=== PATIENT | male | born 1990 | race Caucasian/White ===

== ENCOUNTER 2021-02-04 07:18 | Emergency (ER) | payer MEDICAID, OTHER ==
[~2021-02-04] VITALS: Ht 182.9 cm; Wt 79.4 kg
[2021-02-04 07:27] VITALS: BP 125/75
[2021-02-04] MEDS ORDERED: ZOLO50TA PO (07:31)
[2021-02-04] MEDS ORDERED: TRAZ1TAB10 PO (07:31)
[2021-02-04] MEDS ORDERED: VALA1TAB5 PO (07:46)
[2021-02-04] MEDS ORDERED: PRED20TA PO (07:46)
[2021-02-04] MEDS ORDERED: BACIOIN23 OP (07:47)
[2021-02-05 16:10] LABS: Lyme Disease IgG/IgM Antibodie <0.91 ISR (0.00-0.90); Lyme Disease IgM Ab Quantitati <0.80 index (0.00-0.79)
== END 2021-02-04 08:01 | disposition home or self-care (01) ==
LOC: M ED 07:18
DX: G51.0 Bell's palsy (principal); F41.9 Anxiety disorder, unspecified; F32.9 Major depressive disorder, single episode, unspecified; F17.200 Nicotine dependence, unspecified, uncomplicated; Z79.899 Other long term (current) drug therapy